=== PATIENT | female | born 1990 | race Caucasian/White ===

== ENCOUNTER 2019-09-24 16:50 | Emergency (ER) | payer OTHER ==
[2019-09-24 17:05] VITALS: BP 153/91; PULSE 115; TEMP 98.4; BMI 38.4
--- NOTE | 2019-09-24 17:10 | PDOC ---
History of Present Illness - General Chief Complaint: Nasal Bleeding Stated Complaint: NOSE BLEED & COUGH UP BLOOD Time Seen by Provider: 09/24/19 17:09 History Source: Patient Exam Limitations: No Limitations - History of Present Illness Initial Comments: Pt is a 29 yo F, with no significant PMH, who is presenting with complaints of nosebleeding. Pt states she had 1 episode yesterday, and 2 episodes today, the second after she pulled tissue out of her nose. Pt states it is dry in her home and they have had the heater on. The episodes last 5-10 minutes at a time, but were controlled with direct pressure and she bled through a single tissue. Pt denies any fevers/chills, headache, vision changes, syncope, chest pain, palpitations, SOB, nausea/vomiting, abdominal pain, urinary symptoms, diarrhea/ constipation, or leg swelling. Allergies: NKDA PCP: Dr. Zee ([facility]) Social: Pt denies any cigarette, alcohol, or drug use. Pt denies any recent travel or sick contacts. Surgical: no relevant history. Family: no relevant history. 09/24/19 18:13 Past History - Travel Traveled outside of the country in the last 30 days: No Close contact w/someone who was outside of country & ill: No - Past Medical History Allergies/Adverse Reactions: Allergies Allergy/AdvReac Type Severity Reaction Status Date / Time No Known Allergies Allergy Verified 03/06/12 09:42 Home Medications: Ambulatory Orders Hydrocodone Bit/Acetaminophen [Vicodin Es 7.5-750 mg Tablet] 1 each PO Q6H #10 tablet 03/06/12 Ondansetron [Zofran] 4 mg PO TID #14 03/06/12 Azithromycin [Zithromax Z-JORDAN (5 DAYS) -] 250 mg PO DAILY #6 tablet 03/20/12 - Psycho Social/Smoking Cessation Hx Smoking Status: No Smoking History: Never smoked Have you smoked in the past 12 months: No Number of Cigarettes Smoked Daily: 0 Information on smoking cessation initiated: No Hx Alcohol Use: No Drug/Substance Use Hx: No Review of Systems - Review of Systems Able to Perform ROS?: Yes Is the patient limited Japanese proficient: No Constitutional: Yes: Weight Stable. No: Chills, Diaphoresis, Fever, Loss of Appetite, Malaise, Weakness HEENTM: Yes: See HPI, Nose Bleeding. No: Recent change in vision, Nose Congestion, Throat Pain, Throat Swelling, Difficulty Swallowing Respiratory: No: Cough, Orthopnea, Shortness of Breath Cardiac (ROS): No: Chest Pain, Edema, Irregular Heart Rate, Lightheadedness, Palpitations, Syncope, Chest Tightness ABD/GI: No: Constipated, Diarrhea, Nausea, Poor Appetite, Poor Fluid Intake, Vomiting : No: Burning, Dysuria, Frequency, Pain, Urgency Musculoskeletal: No: Back Pain, Joint Pain, Muscle Pain, Muscle Weakness Integumentary: No: Change in Hair/Nails, Rash Neurological: No: Headache, Numbness, Weakness, Unsteady Gait, Dizziness Psychiatric: No: Sleep Pattern Change, Change in Appetite Endocrine: No: Increased Urine, Change in Weight Hematologic/Lymphatic: No: Anemia, Blood Clots, Easy Bleeding, Easy Bruising All Other Systems: Reviewed and Negative *Physical Exam - Vital Signs Last Vital Signs Temp Pulse Resp BP Pulse Ox 98.4 F 115 H 16 153/91 100 09/24/19 16:55 09/24/19 16:55 09/24/19 16:55 09/24/19 16:55 09/24/19 16:55 - Physical Exam Tachycardic (110 on exam), pt afebrile. Pt in NAD, obese body habitus. Pt alert and oriented x3. relationship management lead generally intact, muscular strength and sensation intact. No midline spinal tenderness, step-offs, or crepitus. Head normocephalic, atraumatic. Eyes PERRLA, EOMI. Oropharynx without erythema or exudates, no LAD b/l. +boggy nasal turbinates, no active nasal bleeding or obvious site of bleed. No nasal congestion. Hearing intact. TMs without erythema or bulging. Clear heart sounds, S1/S2, no JVD, b/l pedal edema, or heart murmur. Clear lung sounds, no respiratory distress, wheezes, crackles, or accessory muscle use. No abdominal or CVA tenderness to palpation, no rebound, no guarding. Abdomen soft, non-distended, and with normoactive bowel sounds. Skin without jaundice or rash. 09/24/19 18:24 Medical Decision Making - Medical Decision Making Pt was seen at bedside, also will be seen by attending Dr. Young. Pt presenting with nose bleeds, no active bleeding at this time. Pt anxious and tachycardic, providing PO water at this time. Ordered afrin spray. Discussed use of humidifier in the home or warm steam from the shower to assist with dryness. Pt with no positive ROS (no SOB, syncope, palpitations) to suggest symptomatic anemia. Will re-evaluate tachycardia once pt is less anxious and after PO hydration. Pt eloped before being seen by attending Dr. Young and before receiving medication. Pt was seen by staff ambulating without assistance from the ER. 09/24/19 18:27 09/24/19 18:29 Discharge - Discharge Information Problems reviewed: Yes Clinical Impression/Diagnosis: Epistaxis not due to trauma Condition: Good Disposition: ELOPED - Admission No - Follow up/Referral - Patient Discharge Instructions Patient Printed Discharge Instructions: DI for Nosebleed - Post Discharge Activity
[2019-09-24] MEDS ORDERED: OXYMETAZOLINE 0.05% NASAL SOLUTION 15 ML BOTTLE NS ONE (17:29)
--- NOTE | 2019-09-24 18:11 | PDOC ---
Attending Attestation - Resident Resident Name: Suzan Wade - ED Attending Attestation I have performed the following: I have examined & evaluated the patient, The case was reviewed & discussed with the resident, I agree w/resident's findings & plan, Exceptions are as noted - HPI HPI: 09/24/19 18:11 Pt eloped from the ED prior to my evaluation - Physicial Exam PE: 09/24/19 18:11 Pt eloped from the ED prior to my evaluation - Medical Decision Making 09/24/19 18:11 Pt eloped from the ED prior to my evaluation. Pt called at listed number x3, no answer
== END 2019-09-24 17:45 | disposition left against medical advice (07) ==
LOC: JER 16:50
DX: R04.0 Epistaxis (principal)
CPT/HCPCS: 99281-25

== ENCOUNTER 2022-02-04 04:48 | Day surgery (SDC) | payer OTHER ==
[2022-01-30 14:28] VITALS: BMI 41.4
[2022-02-04 08:46] VITALS: TEMP 98
[2022-02-04 09:15] VITALS: BP 104/66; PULSE 78
== END 2022-02-04 09:33 | disposition home or self-care (01) ==
LOC: JASU-ENDO 04:48
PROVIDERS: ATTEND Internal Medicine Gastroenterology
PROC: 0DBL8ZX Excision of Transverse Colon, Via Natural or Artificial Opening Endoscopic, Diagnostic (ICD-10-PCS; 2022-02-04)
PROC: 0DBN8ZX Excision of Sigmoid Colon, Via Natural or Artificial Opening Endoscopic, Diagnostic (ICD-10-PCS; 2022-02-04)
PROC: 0DBM8ZX Excision of Descending Colon, Via Natural or Artificial Opening Endoscopic, Diagnostic (ICD-10-PCS; 2022-02-04)
PROC: 0DBK8ZX Excision of Ascending Colon, Via Natural or Artificial Opening Endoscopic, Diagnostic (ICD-10-PCS; principal; 2022-02-04 08:00)
DX: D12.2 Benign neoplasm of ascending colon (principal); D12.4 Benign neoplasm of descending colon; D12.5 Benign neoplasm of sigmoid colon; D12.3 Benign neoplasm of transverse colon
CPT/HCPCS: 81025; 88305-TC